=== PATIENT | male | born 1980 | race Caucasian/White ===

== ENCOUNTER 2018-10-09 19:04 | Observation (INO) | payer OTHER ==
[2018-10-09] MEDS: morphine 4 MG/ML VIAL IV (21:08)
[2018-10-09] MEDS: ONDANSETRON 4 MG INJ IV (21:08)
[2018-10-09] MEDS: ASPIRIN 325 MG TAB PO (21:09)
[2018-10-09] MEDS: NITROGLYCERIN 2% 1 GM OINT PKT TD (21:09)
[2018-10-09] MEDS: NITROGLYCERIN (SL) 0.4 MG TAB SL (21:09)
[2018-10-09 21:31] LABS: ADD MAN DIFF? NO
[2018-10-09 21:32] LABS: WHITE BLOOD COUNT 8.5 10^3/ul (4.8-10.8)
[2018-10-09 21:32] LABS: ABNORMAL IP MESSAGE 1; BASOPHIL # 0.1 10^3/ul (0.0-0.1); BASOPHILS % 0.7 % (0.0-2.0); EOSINOPHILS # 0.2 10^3/ul (0.0-0.5); EOSINOPHILS % 2.1 % (0.0-7.0); HEMATOCRIT 43.9 % (42.0-52.0); LYMPHOCYTES # 1.5 10^3/ul (0.8-2.9); MEAN CORPUSCULAR HEMOGLOBIN 24.4 pg (29.0-33.0); MEAN CORPUSCULAR HGB CONC 31.9 g/dl (32.0-37.0); MEAN CORPUSCULAR VOLUME 76.5 fl (82.0-101.0); MEAN PLATELET VOLUME 11.8 fl (7.4-10.4); MONOCYTE # 0.9 10^3/ul (0.3-0.9); MONOCYTES % 10.1 % (0.0-11.0); NEUTROPHIL # 5.8 10^3/ul (1.6-7.5); NEUTROPHILS % 68.6 % (39.0-77.0); PLATELET COUNT 249 10^3/UL (140-415); POSITIVE DIFF @See below; RED BLOOD COUNT 5.74 10^6/ul (4.70-6.10); RED CELL DISTRIBUTION WIDTH 21.5 % (11.5-14.5)
[2018-10-09 21:50] LABS: ALANINE AMINOTRANSFERASE 18 IU/L (13-69); ALBUMIN 4.3 g/dl (3.3-4.9); ALKALINE PHOSPHATASE 97 IU/L (42-121); ANION GAP 11 (5-13); ASPARTATE AMINO TRANSFERASE 23 IU/L (15-46); BILIRUBIN,INDIRECT 0.2 mg/dl (0-1.1); BILIRUBIN,TOTAL 0.2 mg/dl (0.2-1.3); BLOOD UREA NITROGEN 20 mg/dl (7-20); CALCIUM 9.4 mg/dl (8.4-10.2); CARBON DIOXIDE 30 mmol/L (21-31); CHLORIDE 102 mmol/L (97-110); CREATININE 1.49 mg/dl (0.61-1.24); Estimated GFR 53 mL/min (>60); GLUCOSE 96 mg/dl (70-220); POTASSIUM 4.1 mmol/L (3.5-5.1); SODIUM 143 mmol/L (135-144); TOTAL PROTEIN 7.6 g/dl (6.1-8.1)
[2018-10-09 22:03] LABS: TROPONIN-I 0.066 ng/ml (0.000-0.120)
[2018-10-09] MEDS ORDERED: ALBUTEROL/IPRATROPIUM (NEB) 3 ML AMP HHN (22:30)
[2018-10-09] MEDS ORDERED: NACL 0.9% 3 ML SYG IV (22:30)
[2018-10-09] MEDS ORDERED: ONDANSETRON 4 MG INJ IV ×2 (22:30)
[2018-10-10] MEDS: ACETAMINOPHEN 325 MG TAB PO ×2 (00:27→06:17)
[2018-10-10 01:40] LABS: CREATINE KINASE 52 IU/L (23-200)
[2018-10-10 01:54] LABS: CK INDEX 0.6; CK-MB 0.33 ng/ml (0.0-2.4); TROPONIN-I 0.061 ng/ml (0.000-0.120)
[2018-10-10] MEDS: NITROGLYCERIN (SL) 0.4 MG TAB SL ×2 (05:58→06:21)
[2018-10-10 07:56] LABS: ADD MAN DIFF? NO
[2018-10-10 08:01] LABS: BASOPHIL # 0.1 10^3/ul (0.0-0.1); BASOPHILS % 0.9 % (0.0-2.0); EOSINOPHILS # 0.1 10^3/ul (0.0-0.5); EOSINOPHILS % 1.8 % (0.0-7.0); HEMATOCRIT 40.3 % (42.0-52.0); HEMOGLOBIN 12.4 g/dl (14.0-18.0); LYMPHOCYTES # 1.1 10^3/ul (0.8-2.9); LYMPHOCYTES % 16.5 % (15.0-51.0); MEAN CORPUSCULAR HEMOGLOBIN 23.8 pg (29.0-33.0); MEAN CORPUSCULAR HGB CONC 30.8 g/dl (32.0-37.0); MEAN CORPUSCULAR VOLUME 77.4 fl (82.0-101.0); MEAN PLATELET VOLUME 11.4 fl (7.4-10.4); MONOCYTE # 0.6 10^3/ul (0.3-0.9); NEUTROPHIL # 4.9 10^3/ul (1.6-7.5); NEUTROPHILS % 71.2 % (39.0-77.0); PLATELET COUNT 193 10^3/UL (140-415); RED BLOOD COUNT 5.21 10^6/ul (4.70-6.10); RED CELL DISTRIBUTION WIDTH 21.1 % (11.5-14.5)
[2018-10-10 08:01] LABS: WHITE BLOOD COUNT 6.8 10^3/ul (4.8-10.8)
[2018-10-10 08:19] LABS: CREATINE KINASE 47 IU/L (23-200)
[2018-10-10 08:21] LABS: ALANINE AMINOTRANSFERASE 18 IU/L (13-69); ALBUMIN 3.6 g/dl (3.3-4.9); ALBUMIN/GLOBULIN RATIO 1.38; ALKALINE PHOSPHATASE 77 IU/L (42-121); ANION GAP 9 (5-13); ASPARTATE AMINO TRANSFERASE 17 IU/L (15-46); BILIRUBIN,INDIRECT 0.5 mg/dl (0-1.1); BILIRUBIN,TOTAL 0.5 mg/dl (0.2-1.3); BLOOD UREA NITROGEN 17 mg/dl (7-20); CALCIUM 8.9 mg/dl (8.4-10.2); CARBON DIOXIDE 30 mmol/L (21-31); CHLORIDE 104 mmol/L (97-110); CHOLESTEROL 184 mg/dl (100-200); CREATININE 1.05 mg/dl (0.61-1.24); Estimated GFR > 60 mL/min (>60); GLUCOSE 98 mg/dl (70-220); HDL CHOLESTEROL 45 mg/dl (28-63); LDL CHOLESTEROL,CALCULATED 121 mg/dl; POTASSIUM 4.2 mmol/L (3.5-5.1); SODIUM 143 mmol/L (135-144); TOTAL PROTEIN 6.2 g/dl (6.1-8.1); TRIGLYCERIDES 91 mg/dl (0-149)
[2018-10-10 08:26] LABS: HEMOGLOBIN A1C 5.1 % (0-5.9)
[2018-10-10 08:29] LABS: CK INDEX 0.7; CK-MB 0.34 ng/ml (0.0-2.4); TROPONIN-I 0.072 ng/ml (0.000-0.120)
[2018-10-10] MEDS: ASPIRIN 81 MG TAB PO (08:31)
[2018-10-10] MEDS: HEPARIN 5,000 UNIT/1 ML VIAL SC (08:37)
[2018-10-10] MEDS: SOD FERRIC GLUC COMPLX 125 MG in SOD CHLORIDE 0.9% 100 ML IVPB (12:00)
[2018-10-10 15:05] LABS: IRON 258 ug/dl (35-150)
[2018-10-10 15:08] LABS: C-REACTIVE PROTEIN 0.9 mg/dl (0.0-0.9)
[2018-10-10 15:14] LABS: % IRON SATURATION 66 % SAT (22-52); TOTAL IRON BINDING CAPACITY 389 ug/dl (241-421)
[2018-10-10 15:17] LABS: TROPONIN-I 0.058 ng/ml (0.000-0.120)
== END 2018-10-10 18:41 | disposition home or self-care (01) ==
LOC: E/R 19:04 → TEL 22:10
DX: R07.9 Chest pain, unspecified (principal); R42 Dizziness and giddiness; R51 Headache; R94.39 Abnormal result of other cardiovascular function study; F84.5 Asperger's syndrome; D50.9 Iron deficiency anemia, unspecified
CPT/HCPCS: 36415; 71045; 80053; 80061; 82550; 82553; 83036; 83540; 83735; 84443; 84484; 85025; 86140; 93005; 93306; 96374; 96375; 99285-25; G0378